=== PATIENT | male | born 1995 | race Caucasian/White ===

== ENCOUNTER 2023-07-13 15:48 | Emergency (ER) | payer SELFPAY ==
--- NOTE | ~2023-07-13 | XR_ITS ---
EXAMINATION: XR clavicle LT DATE: 07/13/2023 16:12 INDICATION: Left shoulder injury. TECHNIQUE: 2 views of left clavicle were obtained. COMPARISON: None. FINDINGS: There is a comminuted fracture involving the middle third of left clavicle. The main distal fracture fragment demonstrates one half shaft width inferior displacement and 16 degrees inferior an gulation. Coracoclavicular interval is normal. Joint spaces are normal. IMPRESSION: 1. Comminuted fracture of left clavicle. Reviewed, dictated and finalized at location E.
--- NOTE | ~2023-07-13 | XR_ITS ---
EXAMINATION: XR shoulder LT min 2V DATE: 07/13/2023 16:12 INDICATION: Left shoulder pain. Fall. TECHNIQUE: 2 views of left shoulder were obtained. COMPARISON: None. FINDINGS: There is a comminuted fracture involving the middle third of left clavicle. The main distal fracture fragment demonstrates one half shaft width inferior displacement and 16 degrees inferior an gulation. Joint spaces are normal. IMPRESSION: 1. Comminuted fracture of left clavicle. Reviewed, dictated and finalized at location E.
[2023-07-13 15:49] VITALS: BP 121/74; PULSE 99; RESP 18; TEMP 36.3; O2SAT 97
--- NOTE | 2023-07-13 16:20 | ED.UPPEXIN ---
HPI - Extremity Injury (Upper) General Chief Complaint: Extremity Injury, Upper Stated Complaint: Left shoulder injury Time Seen by Provider: 07/13/23 16:16 Source: patient Mode of arrival: ambulatory Limitations: no limitations History of Present Illness HPI narrative: Bishop is a 27-year-old male patient presenting to the emergency room today with complaints of left clavicle/shoulder pain. He reports that he was skateboarding this afternoon and hit a bump and this threw him off the skateboard landing on his left shoulder. Does have some deformity over the left clavicle. Tenderness to palpation over the left clavicle. Denies hitting his head, loss of consciousness, or any neck pain Review of Systems Review of Systems: Pertinent positives per HPI. Patient denies any fever, chills, rash, headache, visual changes, dizziness, cough, runny nose, sore throat, shortness of breath, chest pain, palpitations, nausea, vomiting, diarrhea, constipation, abdominal pain, or any urinary issues. PMFSH Comments At the time of my signature, I reviewed and agree with the nursing past medical, surgical, social, and family history. There is no relevant family history pertinent to the patient complaint. Exam Narrative: General: Well-developed, well nourished, in no apparent distress Head: Normocephalic, atraumatic. Cardio: Regular rate and rhythm, s1 and s2 normal, no murmur appreciated. Resp: Clear to auscultation bilaterally, no rhonchi, rales, wheezing or rubs. Musculoskeletal: No deformity, tender to palpation over the mid left clavicle, unable to raise arm above head without significant pain, very limited range of motion due to pain, muscle strength strong and equal, peripheral pulses strong, no edema, no cyanosis, normal gait and station Course Course Emergency Course: Portions of this record may have been created with voice recognition software. Vital Signs Vital signs: Vital Signs Temperature 36.3 C L 07/13/23 15:49 Pulse Rate 99 07/13/23 15:49 Respiratory Rate 18 07/13/23 15:49 Blood Pressure 121/74 07/13/23 15:49 Pulse Oximetry 97 07/13/23 15:49 Oxygen Delivery Room Air 07/13/23 15:49 Temperature 36.3 C L 07/13/23 15:49 Pulse Rate 99 04/14/24 15:49 Respiratory Rate 18 07/13/23 15:49 Blood Pressure 121/74 07/13/23 15:49 Pulse Oximetry 97 07/13/23 15:49 Oxygen Delivery Room Air 07/13/23 15:49 Vital signs reviewed MDM - Extremity Injury (Upper) MDM Narrative Medical decision making narrative: At the time of visit patient is resting comfortably on the exam table. Patient appears to be nontoxic. Supportive measures were discussed with the patient and they voiced understanding discharge instructions and agrees to treatment plan. Return precautions reviewed Differential Diagnosis Differential diagnosis: Likely fracture of clavicle and other (Clavicle contusion, humerus fracture, AC joint separation) Discharge Plan Discharge Clinical Impression: Clavicle fracture Qualifiers: Encounter type: initial encounter Clavicle location: shaft Fracture type: closed Fracture alignment: displaced Laterality: left Qualified Code(s): S42.022A - Displaced fracture of shaft of left clavicle, initial encounter for closed fracture Patient Disposition: Home, Self-Care Condition: Stable Instructions: Antibiotic Form, Clavicle Fracture (ED) Additional Instructions: Wear arm sling as discussed Take [place] as needed for pain May take ibuprofen as needed additionally for pain Apply ice pack to the affected area for 20 minutes at a time 20 minutes off 20 minutes on Follow-up with Dr. Marquez-call his office on Friday to schedule appointment Prescriptions: New hydrocodone-acetaminophen 5-325 mg tablet 1 tablet PO Q6H PRN (Reason: pain) 3 Days Qty: 12 0RF Follow-up/Referrals: Waldemar Marquez MD [Physician] - (left closed comminuted clavicle fracture ) PHYSICIAN NOT ON
[2023-07-13] MEDS: HYDROcodone/acetaminophen (*CRX) 5-325 MG TABLET 1 TAB PO (17:08)
== END 2023-07-13 17:15 | disposition home or self-care (01) ==
PROVIDERS: Emergency Provider Nurse Practitioner Family
DX: S42.022A Displaced fracture of shaft of left clavicle, initial encounter for closed fracture (principal); V00.131A Fall from skateboard, initial encounter; Y93.51 Activity, roller skating (inline) and skateboarding
CPT/HCPCS: 73000; 73030; 99284; A9270